=== PATIENT | female | born 1980 | race Caucasian/White ===

== ENCOUNTER → 2018-02-21 | Outpatient (CLI) | payer OTHER | LOC: FIMAGING 14:11 | PROVIDERS: ATTEND Obstetrics & Gynecology | DX: O09.522 Supervision of elderly multigravida, second trimester (principal); O30.032 Twin pregnancy, monochorionic/diamniotic, second trimester; O44.02 Complete placenta previa NOS or without hemorrhage, second trimester; Z3A.16 16 weeks gestation of pregnancy ==

== ENCOUNTER → 2018-03-07 | Outpatient (CLI) | payer OTHER | LOC: FIMAGING 11:26 | PROVIDERS: ATTEND Obstetrics & Gynecology | DX: O30.032 Twin pregnancy, monochorionic/diamniotic, second trimester (principal); Z3A.18 18 weeks gestation of pregnancy; O09.522 Supervision of elderly multigravida, second trimester ==

== ENCOUNTER → 2018-04-04 | Outpatient (CLI) | payer OTHER | LOC: FIMAGING 14:23 | PROVIDERS: ATTEND Obstetrics & Gynecology | DX: O09.512 Supervision of elderly primigravida, second trimester (principal); O30.032 Twin pregnancy, monochorionic/diamniotic, second trimester; O09.812 Supervision of pregnancy resulting from assisted reproductive technology, second trimester; Z3A.22 22 weeks gestation of pregnancy ==

== ENCOUNTER → 2018-04-18 | Outpatient (CLI) | payer OTHER | LOC: FIMAGING 08:46 | PROVIDERS: ATTEND Obstetrics & Gynecology | DX: O09.522 Supervision of elderly multigravida, second trimester (principal); O30.032 Twin pregnancy, monochorionic/diamniotic, second trimester; O09.812 Supervision of pregnancy resulting from assisted reproductive technology, second trimester; O09.292 Supervision of pregnancy with other poor reproductive or obstetric history, second trimester; Z3A.24 24 weeks gestation of pregnancy ==

== ENCOUNTER → 2018-05-06 | Outpatient (CLI) | payer OTHER | LOC: FIMAGING 08:49 | PROVIDERS: ATTEND Obstetrics & Gynecology | DX: O09.522 Supervision of elderly multigravida, second trimester (principal); O30.032 Twin pregnancy, monochorionic/diamniotic, second trimester; Z3A.26 26 weeks gestation of pregnancy ==

== ENCOUNTER → 2018-05-20 | Outpatient (CLI) | payer OTHER | LOC: FIMAGING 08:04 | PROVIDERS: ATTEND Obstetrics & Gynecology | DX: O09.523 Supervision of elderly multigravida, third trimester (principal); O30.033 Twin pregnancy, monochorionic/diamniotic, third trimester; O43.123 Velamentous insertion of umbilical cord, third trimester; Z3A.28 28 weeks gestation of pregnancy ==

== ENCOUNTER → 2018-05-30 | Outpatient (CLI) | payer OTHER | LOC: FIMAGING 10:20 | PROVIDERS: ATTEND Obstetrics & Gynecology | DX: O30.033 Twin pregnancy, monochorionic/diamniotic, third trimester (principal); Z3A.30 30 weeks gestation of pregnancy ==

== ENCOUNTER 2018-06-13 09:29 | Day surgery (SDC) | payer OTHER | END 2018-06-13 09:54 | disposition home or self-care (01) | LOC: FOBOP 09:29 | PROVIDERS: ATTEND Obstetrics & Gynecology | DX: O30.093 Twin pregnancy, unable to determine number of placenta and number of amniotic sacs, third trimester (principal); O09.523 Supervision of elderly multigravida, third trimester; Z3A.32 32 weeks gestation of pregnancy ==

== ENCOUNTER → 2018-06-13 | Outpatient (CLI) | payer OTHER | LOC: FIMAGING 10:15 | PROVIDERS: ATTEND Obstetrics & Gynecology | DX: O09.523 Supervision of elderly multigravida, third trimester (principal); O30.033 Twin pregnancy, monochorionic/diamniotic, third trimester; Z3A.32 32 weeks gestation of pregnancy ==

== ENCOUNTER → 2018-06-17 | Day surgery (SDC) | payer OTHER | END | disposition home or self-care (01) | LOC: EEVIPCON 13:28 → UNDOADMOB 13:28 → FLD 13:28 → FOBOP 13:28 → UNDODISOB 14:18 → EDSTATUS 15:39 | PROVIDERS: ATTEND Obstetrics & Gynecology | DX: O30.003 Twin pregnancy, unspecified number of placenta and unspecified number of amniotic sacs, third trimester (principal); Z3A.32 32 weeks gestation of pregnancy ==

== ENCOUNTER → 2018-06-24 | Outpatient (CLI) | payer OTHER | LOC: FOBOP 15:08 | PROVIDERS: ATTEND Obstetrics & Gynecology | DX: O30.003 Twin pregnancy, unspecified number of placenta and unspecified number of amniotic sacs, third trimester (principal); Z3A.33 33 weeks gestation of pregnancy ==

== ENCOUNTER 2018-06-27 10:42 | Outpatient (CLI) | payer OTHER | END 2018-06-27 13:05 | disposition home or self-care (01) | LOC: FOBOP 10:42 | PROVIDERS: ATTEND Obstetrics & Gynecology | DX: O09.523 Supervision of elderly multigravida, third trimester (principal); O30.033 Twin pregnancy, monochorionic/diamniotic, third trimester; Z3A.34 34 weeks gestation of pregnancy ==

== ENCOUNTER 2018-07-04 11:02 | Outpatient (CLI) | payer OTHER | END 2018-07-04 12:40 | disposition home or self-care (01) | LOC: FOBOP 11:02 | PROVIDERS: ATTEND Obstetrics & Gynecology | DX: O30.003 Twin pregnancy, unspecified number of placenta and unspecified number of amniotic sacs, third trimester (principal); Z3A.35 35 weeks gestation of pregnancy ==

== ENCOUNTER 2018-07-11 11:45 | Outpatient (CLI) | payer OTHER | END 2018-07-11 12:15 | disposition home or self-care (01) | LOC: FOBOP 11:45 | PROVIDERS: ATTEND Obstetrics & Gynecology | DX: O30.009 Twin pregnancy, unspecified number of placenta and unspecified number of amniotic sacs, unspecified trimester (principal) ==

== ENCOUNTER → 2018-07-11 | Outpatient (CLI) | payer OTHER | LOC: FIMAGING 09:26 | PROVIDERS: ATTEND Obstetrics & Gynecology | DX: O09.523 Supervision of elderly multigravida, third trimester (principal); O30.033 Twin pregnancy, monochorionic/diamniotic, third trimester; Z3A.36 36 weeks gestation of pregnancy ==

== ENCOUNTER 2018-07-15 13:02 | Outpatient (CLI) | payer OTHER ==
--- NOTE | 2018-07-15 14:37 | OBPROG ---
Labor Progress Note Assessment/Plan: Assessment: 37 y/o @ 36 4/7 weeks with mono/di twins for scheduled NST Plan: D/c home after reassuring testing. Scheduled IOL next week. 07/15/18 14:36 Subjective/Intrapartum Course: 07/15/18 14:35 Pt presents for scheduled twin NST. mono/di twins 364/7 weeks. No complaints - Contraction Pattern Assessment Current Contraction Pattern: Other (Specify) (irritability, no contractions) - FHR Assessment Twin A FHR (bpm): 130 FHR Pattern Variability: Moderate FHR Category: 1 Twin B FHR (bpm): 140 FHR Pattern Variability: Moderate FHR Category: 1 ICD10 Worksheet Patient Problems: Problems Problem Status Onset Twin gestation with third Acute Monochorionic diamniotic twin gestation Acute Monochorionic diamniotic twin gestation in third trimester Acute Monochorionic diamniotic twin gestation in third trimester Acute
== END 2018-07-15 13:40 | disposition home or self-care (01) ==
LOC: FOBOP 13:02
PROVIDERS: ATTEND Obstetrics & Gynecology
DX: O30.033 Twin pregnancy, monochorionic/diamniotic, third trimester (principal); Z3A.36 36 weeks gestation of pregnancy

== ENCOUNTER → 2018-07-18 | Outpatient (CLI) | payer OTHER | LOC: FOBOP 13:04 | PROVIDERS: ATTEND Hospitalist | DX: O30.003 Twin pregnancy, unspecified number of placenta and unspecified number of amniotic sacs, third trimester (principal); Z3A.37 37 weeks gestation of pregnancy ==

== ENCOUNTER 2018-07-22 14:15 | Observation (INO) | payer OTHER ==
--- NOTE | 2018-07-22 14:58 | SOAPPROG ---
SOAP Progress Note Assessment/Plan: Assessment: 37 yo at 36w6d with mono/di twins - reactive NST Plan:dc home, proceed with IOL tomorrow as already scheduled. Jacey Morris MD, FACOG 07/22/18 14:56 Subjective: Did not see patient - reviewed NST only Objective: NST - both A and B with 130 baseline and both reactive, moderate variability. Rare 10 sec variable decel to 100. - Pending Discharge Pending Discharge Within 24 Hours: Yes Pending Discharge Within 48 Hours: Yes Pending Discharge Date: 07/23/18 Pending Discharge Time: 11:00 ICD10 Worksheet Patient Problems: Problems Problem Status Onset Monochorionic diamniotic twin gestation Acute Monochorionic diamniotic twin gestation in third trimester Acute Monochorionic diamniotic twin gestation in third trimester Acute Twin gestation with third Acute
== END 2018-07-22 15:05 | disposition home or self-care (01) ==
LOC: FOBOP 14:15 → FLD 14:17
PROVIDERS: ADMIT Hospitalist; ATTEND Hospitalist
DX: O30.033 Twin pregnancy, monochorionic/diamniotic, third trimester (principal); Z3A.38 38 weeks gestation of pregnancy

== ENCOUNTER 2018-07-23 06:00 | Inpatient (IN) | payer OTHER ==
[2018-07-23] MEDS ORDERED: OXYTOCIN/RINGERS LACTATE 1,000 ML IV PRN (07:03)
[2018-07-23] MEDS ORDERED: TERBUTALINE SULFATE 1 MG/ML VIAL IV PRN (07:03)
[2018-07-23] MEDS ORDERED: LR 500 ML IV PRN (07:03)
[2018-07-23] MEDS ORDERED: LIDOCAINE 1% 300 MG/30 ML SDV SC PRN (07:03)
[2018-07-23] MEDS ORDERED: MISOPROSTOL 200 MCG TAB PO PRN (07:03)
[2018-07-23] MEDS ORDERED: AMMONIA AROMATIC 1 EACH AMP IH PRN (07:03)
[2018-07-23] MEDS ORDERED: OLIVE OIL 118 ML BTL MISC PRN (07:03)
[2018-07-23] MEDS ORDERED: LR 1,000 ML IV PRN (07:03)
[2018-07-23] MEDS ORDERED: OXYTOCIN/RINGERS LACTATE 500 ML IV SCH (07:03)
[2018-07-23] MEDS ORDERED: EPSOM SALT 454 GM TP PRN (07:03)
[2018-07-23] MEDS ORDERED: IBUPROFEN 600 MG TAB PO PRN (07:03)
[2018-07-23] MEDS ORDERED: OLIVE OIL 118 ML BTL ONE (07:36)
[2018-07-23] MEDS ORDERED: AMMONIA AROMATIC 1 EACH AMP IH ONE (07:36)
[2018-07-23] MEDS ORDERED: LIDOCAINE 1% 300 MG/30 ML SDV ONE (07:36)
[2018-07-23] MEDS ORDERED: MISOPROSTOL 200 MCG TAB ONE (07:36)
[2018-07-23] MEDS ORDERED: TERBUTALINE SULFATE 1 MG/ML VIAL ONE (07:36)
[2018-07-23 08:15] LABS: PLATELET COUNT 125 10^3/uL (150-400)
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
--- NOTE | 2018-07-23 11:35 | OBPROG ---
Labor Progress Note Assessment/Plan: Assessment: 37 y/o @ 37 5/7 weeks IOL secondary to mono/di twins Plan: Good progress and good contraction pattern with pitocin. Pt will get her epidural now and then I will proceed with AROM. status reassuring x 2. 07/23/18 11:34 Subjective/Intrapartum Course: 07/23/18 11:32 Pt is beginning to feel strong regular contractions. Moderate intensity. Objective: 07/23/18 07:25 Patient ABO/Rh B POSITIVE 07/23/18 07:25 - SVE Dilation (cm): 4 Effacement (%): 80 Station: -2 Membranes: Intact - Contraction Pattern Assessment Current Contraction Pattern: Regular (Q 2-3) - FHR Assessment Twin A FHR (bpm): 140 FHR Pattern Variability: Moderate FHR Category: 1 Twin B FHR (bpm): 130 FHR Pattern Variability: Moderate FHR Category: 1 - AP Antepartum Course: 07/23/18 11:33 mono/di twins marginal cord insertion x 2 Followed with Q 2 week u/s, good growth and fluids Oxytocin Orders Assessment - Pre-Induction/Augmentation Assessment Gestational Age: 37 week(s) and 5 day(s) ICD10 Worksheet Patient Problems: Problems Problem Status Onset Monochorionic diamniotic twin gestation Acute Monochorionic diamniotic twin gestation in third trimester Acute Monochorionic diamniotic twin gestation in third trimester Acute Twin gestation with third Acute
[2018-07-23] MEDS ORDERED: fentaNYL 100 MCG/2 ML INJ ONE (11:51)
--- NOTE | 2018-07-23 12:28 | PREANESOB ---
Obstetric Pre-Anesthesia Info - General Info Proposed Procedure: PCEA : 2 Para: 1 MARIA M: 08/08/18 Gestational Age: 37 week(s) and 5 day(s) - Labor Status Cervical Dilation per last OB SVE: 4 Station per last OB SVE: -2 Indications for Labor Analgesia: Pain Control Labor Epidural: Yes Anesthesia Allergies/Adverse Reactions: Allergy/AdvReac Type Severity Reaction Status Date / Time cortisone Allergy Rash Verified 06/27/18 11:55 latex Allergy Verified 06/27/18 11:55 Penicillins Allergy Verified 06/27/18 11:56 Home Medications: Medication Instructions Recorded Ferrous Sulfate 1 tab PO BID 06/13/18 Magnesium 1 tab PO BID 06/13/18 1 tab PO DAILY 06/13/18 Visit Medications: Generic Name Dose Route Start Last Admin Trade Name Freq PRN Reason Stop Dose Admin Ammonia (Aromatic Spirit) 1 each 07/23/18 07:03 Ammonia Aromatic IH 08/02/18 07:02 ONCE PRN Fainting Lactated Ringer's 1,000 mls @ 0 mls/hr 07/23/18 07:03 07/23/18 07:49 Lr IV 07/24/18 07:02 1,000 mls PRN PRN Administration SEE PROTOCOL CONDITIONS Protocol Per Protocol Oxytocin/Lactated Ringer's 1,000 mls @ 125 mls/hr 07/23/18 07:03 Pitocin 20 Units/Lr (Premix) IV PRN PRN Post bleeding Lactated Ringer's 500 mls @ 500 mls/hr 07/23/18 07:03 Lr IV PRN PRN Maternal Hypotension Oxytocin/Lactated Ringer's 500 mls @ 0 mls/hr 07/23/18 07:03 07/23/18 07:49 Pitocin 30 Units/Lr (Premix) IV 01/19/19 07:02 500 mls CONT LUZ Administration Protocol Per Protocol Fentanyl 200 mcg/ Bupivacaine 100 mls @ 0 mls/hr 07/23/18 12:30 HCl 20 ml/ Sodium Chloride EP 08/02/18 12:29 CONT LUZ Protocol As Directed Ibuprofen 600 mg 07/23/18 07:03 Motrin PO ONCE PRN post , pain Lidocaine HCl 300 mg 07/23/18 07:03 Lidocaine Hcl 1% SC 01/19/19 07:02 ONCE PRN episiotomy Magnesium Sulfate 454 gm 07/23/18 07:03 Epsom Salt TP 01/19/19 07:02 Q1H PRN perineal discomfort Misoprostol 800 - 1,000 mcg 07/23/18 07:03 Cytotec PO 01/19/19 07:02 ONCE PRN Vaginal Atony/Bleeding [place] Oil 118 ml 07/23/18 07:03 Sweet Oil MISC 01/19/19 07:02 ONCE PRN perineal massage Terbutaline Sulfate 0.25 mg 07/23/18 07:03 Brethine IV 01/19/19 07:02 ONCE PRN Tachysystole Discontinued Medications Generic Name Dose Route Start Last Admin Trade Name Freq PRN Reason Stop Dose Admin Ammonia (Aromatic Spirit) Confirm 07/23/18 07:36 Ammonia Aromatic Administered 07/23/18 07:37 Dose 1 each IH .STK-MED ONE Fentanyl Confirm 07/23/18 11:51 Sublimaze Administered 07/23/18 11:52 Dose 100 mcg .ROUTE .STK-MED ONE Lidocaine HCl Confirm 07/23/18 07:36 Lidocaine Hcl 1% Administered 07/23/18 07:37 Dose 300 mg .ROUTE .STK-MED ONE Misoprostol Confirm 07/23/18 07:36 Cytotec Administered 07/23/18 07:37 Dose 1,000 mcg .ROUTE .STK-MED ONE [place] Oil Confirm 07/23/18 07:36 Sweet Oil Administered 07/23/18 07:37 Dose 118 ml .ROUTE .STK-MED ONE Terbutaline Sulfate Confirm 07/23/18 07:36 Brethine Administered 07/23/18 07:37 Dose 1 mg .ROUTE .STK-MED ONE - Vital Signs Height/Weight (Nursing): Height 180.34 cm Weight 78.925 kg Labs: 07/23/18 07:25 Patient ABO/Rh B POSITIVE 07/23/18 07:25
[2018-07-23] MEDS ORDERED: fentaNYL 2MCG/ML/BUP 0.1% RTU 100 ML EP SCH (12:30)
[2018-07-23] MEDS ORDERED: fentaNYL 200 MCG, BUPIVACAINE 0.5% 20 ML in NS 100 ML EP SCH (12:30)
[2018-07-23] MEDS ORDERED: LR 500 ML IV SCH (12:30)
--- NOTE | 2018-07-23 12:30 | PDANEPAE ---
ANE History of Present Illness PCEA for labor - twins ANE Past Medical History - Cardiovascular History Hx Hypertension: No - Pulmonary History Hx Asthma/Reactive Airway Disease: No Hx Sleep Apnea: No - Endocrine History Hx Diabetes: No - Neurological & Psychiatric Hx Hx Neurological and Psychiatric Disorders: No - Chronic Pain History Chronic Pain: No ANE Review of Systems Review of Systems: ANE Patient History - Allergies Allergies/Adverse Reactions: cortisone Allergy (Verified 06/27/18 11:55) Rash latex Allergy (Verified 06/27/18 11:55) Penicillins Allergy (Verified 06/27/18 11:56) - Home Medications Home medications: home medication list seen and reviewed Home Medications: Ferrous Sulfate 1 tab PO BID 06/13/18 [Last Taken 07/08/18 08:00] Magnesium 1 tab PO BID 06/13/18 [Last Taken 07/08/18 13:00] 1 tab PO DAILY 06/13/18 [Last Taken 07/08/18 08:00] - Anes Hx Anes Hx: no prior problems (Epidural with first child about 2 years ago in [facility]) - Smoking Hx Smoking Status: Never smoked ANE Labs/Vital Signs - Labs Result Diagrams: 07/23/18 07:25 - Vital Signs Height: 180.34 cm Weight: 78.925 kg ANE Physical Exam - Airway Neck exam: FROM Mallampati Score: Class 1 Mouth exam: normal dental/mouth exam - Pulmonary Pulmonary: no respiratory distress - Cardiovascular Cardiovascular: regular rate and rhythym - ASA Status ASA Status: II ANE Anesthesia Plan Anesthesia Plan: epidural
[2018-07-23] MEDS ORDERED: PHENYLEPHRINE HCL 100 MCG/ML SYR ONE (12:31)
[2018-07-23] MEDS ORDERED: BUPIVACAINE 0.25% 30 ML SDV ONE (15:17)
--- NOTE | 2018-07-23 15:20 | OBPROG ---
Labor Progress Note Assessment/Plan: Assessment: 37 y/o @ 37 5/7 weeks IOL secondary to mono/di twins Plan: Consistent cervical progress, now comfortable with her epidural. AROM but min fluid, will observe fluid and increase pitocin until adequate. status reassuring x 2. 07/23/18 11:34 07/23/18 15:18 Subjective/Intrapartum Course: 07/23/18 11:32 Pt is beginning to feel strong regular contractions. Moderate intensity. 07/23/18 15:16 Pt is now comfortable with her epidural. Objective: 07/23/18 07:25 Patient ABO/Rh B POSITIVE 07/23/18 07:25 - SVE Dilation (cm): 6 Effacement (%): 80 Station: -2 Membranes: AROM, Intact Amniotic Fluid Color: Clear (min fluid) - Contraction Pattern Assessment Current Contraction Pattern: Regular (Q 2-4 ) - FHR Assessment Twin B FHR (bpm): 140 FHR Pattern Variability: Moderate FHR Category: 1 Twin A FHR (bpm): 130 FHR Pattern Variability: Moderate FHR Category: 1 - Procedures Non-surgical Procedures: Amniotomy - AP Antepartum Course: 07/23/18 11:33 mono/di twins marginal cord insertion x 2 Followed with Q 2 week u/s, good growth and fluids Oxytocin Orders Assessment - Pre-Induction/Augmentation Assessment Gestational Age: 37 week(s) and 5 day(s) ICD10 Worksheet Patient Problems: Problems Problem Status Onset Monochorionic diamniotic twin gestation Acute Monochorionic diamniotic twin gestation in third trimester Acute Monochorionic diamniotic twin gestation in third trimester Acute Twin gestation with third Acute
[2018-07-23] MEDS ORDERED: HYDROCORTISONE 0.5% CREAM TP PRN (19:17)
[2018-07-23] MEDS ORDERED: SIMETHICONE 80 MG TAB CHEW PO PRN (19:17)
[2018-07-23] MEDS ORDERED: DOCUSATE SODIUM 100 MG CAP PO PRN (19:17)
[2018-07-23] MEDS ORDERED: CALCIUM CARBONATE 500 MG CHEWABLE TAB PO PRN (19:20)
--- NOTE | 2018-07-23 19:24 | OBDEL ---
Info Type: Vaginal Presentation at Delivery: Vertex L&D Analgesia/Anesthesia Type: Epidural GBS+: No Intrapartum Medications: Generic Name Dose Route Start Last Admin Trade Name Freq PRN Reason Stop Dose Admin Lactated Ringer's 1,000 mls @ 0 mls/hr 07/23/18 07:03 07/23/18 07:49 Lr IV 07/24/18 07:02 1,000 mls PRN PRN Administration SEE PROTOCOL CONDITIONS Protocol Per Protocol Oxytocin/Lactated Ringer's 500 mls @ 0 mls/hr 07/23/18 07:03 07/23/18 07:49 Pitocin 30 Units/Lr (Premix) IV 01/19/19 07:02 500 mls CONT LUZ Administration Protocol Per Protocol - Hospital Course Intrapartum: 07/23/18 11:32 Pt is beginning to feel strong regular contractions. Moderate intensity. 07/23/18 15:16 Pt is now comfortable with her epidural. Indications for Delivery: Multiple Gestation Mo-Di Twins Vaginal Delivery - Delivery Provider Delivery Physician/CNM: Jeannette Cortez Proctoring Provider: Viridiana Kraus (assisting 2nd MD) - Labor and Delivery Onset of Contractions Date: 07/23/18 Onset of Contractions Time: 15:10 Onset of Contractions Type: Induced Rupture of Membranes Date: 07/23/18 Rupture of Membranes Time: 15:10 Rupture of Membranes Type: Artificial Amniotic Fluid Color: Clear (min fluid) Dilation Complete Date: 07/23/18 Dilation Complete Time: 17:32 Placenta Delivery Date: 07/23/18 Placenta Delivery Time: 18:50 Total Hours of Labor: 3 Non-surgical Procedures: Amniotomy Laceration: 2nd Degree Repair: 2-0, Vicryl Vaginal Sponge Count Correct: Yes Vaginal Needle Count Correct: Yes Vaginal Sweep Performed: Yes EBL: 400 Delivery Events: Nuchal Cord (nuchal cord x1 baby A) - Medications Labor Augmentation/Induction Methods Used: Pitocin Labor Augmentation/Induction Indication: Other (Specify) (mono/di twins 37 weeks ) Data MARIA M: 08/08/18 Gestational Age: 37 week(s) and 5 day(s) Twin A Delivery Date: 07/23/18 Delivery Time: 18:39 Sex of Infant: Male Florien Weight (gm): 2550 g Score (1 Min): 9 Score (5 Min): 10 Twin B Delivery Date: 07/23/18 Delivery Time: 18:44 Sex of Infant: Male Florien Weight (gm): 2554 g Score (1 Min): 8 Score (5 Min): 9 ICD10 Worksheet Patient Problems: Problems Problem Status Onset (spontaneous vaginal delivery) Acute Twin Acute Monochorionic diamniotic twin gestation Acute Monochorionic diamniotic twin gestation in third trimester Acute Monochorionic diamniotic twin gestation in third trimester Acute Twin gestation with third Acute - ICD10 Problem Qualifiers (1) Twin (2) (spontaneous vaginal delivery)
[2018-07-24] MEDS: ACETAMINOPHEN 325 MG TAB PO SCH ×4 (00:51→16:59)
[2018-07-24] MEDS: IBUPROFEN 600 MG TAB PO SCH ×3 (02:10→16:58)
--- NOTE | 2018-07-24 09:42 | OBPP ---
Progress Note Assessment/Plan: Assessment: s/p [place]-Di twins PPD # 1 - pt is stable Plan: Continue routine pp care Encourage ambulation Will add Oxy for painful cramps and sore bottom Plan for d/c home in am /07/24/18 09:39 Subjective/ Course: 07/24/18 09:40 Pt seen and examined. Doing well, just passed a large clot and had a lot of cramping. Minimal relief with Motrin/Tylenol. Pt is OOB, miguel nagel regular diet, voiding and passing flatus. No BM yet. She is pumping; working with . Objective: 07/24/18 05:24 Patient ABO/Rh B POSITIVE 07/23/18 07:25 Temp Pulse Resp BP Pulse Ox 36.6 C 58 L 17 97/56 L 95 07/24/18 08:00 07/24/18 08:00 07/24/18 08:00 07/24/18 08:00 07/24/18 08:00 Uterine Position/Fundal Height: Umbilicus -1 Uterine Tone: Firm Physical Exam - Physical Exam General Appearance: WD/WN, alert, no apparent distress Respiratory: lungs clear, normal breath sounds Cardiac/Chest: regular rate, rhythm Abdomen: normal bowel sounds, non-tender, soft, flatus (+) Extremities: non-tender, normal inspection Skin: normal color, warm/dry Neuro/Psych: alert, normal mood/affect, oriented x 3
[2018-07-24] MEDS: oxyCODONE IR 5 MG TAB PO PRN ×2 (10:20→20:29)
--- NOTE | 2018-07-24 11:34 | POSTANESTH ---
Post Anesthetic Evaluation Cardiovascular Status: Normal, Stable Respiratory Status: Normal, Stable Level of Consciousness/Mental Status: Can Participate in Eval Pain Control: Adequate, Prn Tx Ordered Nausea/Vomiting Control: Adequate, Prn Tx Ordered Complications Possibly Related to Anesthesia: None Noted
[2018-07-25] MEDS: ACETAMINOPHEN 325 MG TAB PO SCH ×4 (00:05→14:28)
[2018-07-25] MEDS: IBUPROFEN 600 MG TAB PO SCH ×4 (00:06→14:28)
[2018-07-25 12:41] VITALS: BP 109/72
--- NOTE | 2018-07-25 13:36 | OBPP ---
Progress Note Assessment/Plan: Assessment: PPD 2 s/p twins mild anemia Plan: D/C to boarder status. 07/25/18 13:33 Subjective/ Course: 07/24/18 09:40 Pt seen and examined. Doing well, just passed a large clot and had a lot of cramping. Minimal relief with Motrin/Tylenol. Pt is OOB, miguel angel regular diet, voiding and passing flatus. No BM yet. She is pumping; working with . 07/25/18 13:34 Pt doing well. Good success with BF. moderate cramps and has used occas oxy. using ibu/tyl. Light bleeding. urinating fine. Objective: 07/24/18 05:24 Patient ABO/Rh B POSITIVE 07/23/18 07:25 Temp Pulse Resp BP Pulse Ox 36.1 C 72 16 109/72 94 07/25/18 08:00 07/25/18 08:00 07/25/18 08:00 07/25/18 08:00 07/24/18 20:01 Uterine Position/Fundal Height: Umbilicus -2 Uterine Tone: Firm Physical Exam - Physical Exam Abdomen: non-tender, soft, other (normal lochia) Extremities: non-tender, pedal edema (minimal) Skin: normal color, warm/dry Neuro/Psych: alert, normal mood/affect
--- NOTE | 2018-07-25 13:37 | OBGCSDC ---
General Delivery Information - General Info : 2 Para: 2 Abortions: 0 Type: Vaginal L&D Analgesia/Anesthesia Type: Epidural Admission Date: 07/23/18 Labs: Patient ABO/Rh B POSITIVE 07/23/18 07:25 Hct 35.2 % (38.0-47.0) L 07/24/18 05:24 - Hospital Course Antepartum: 07/23/18 11:33 mono/di twins marginal cord insertion x 2 Followed with Q 2 week u/s, good growth and fluids Intrapartum: 07/23/18 11:32 Pt is beginning to feel strong regular contractions. Moderate intensity. 07/23/18 15:16 Pt is now comfortable with her epidural. : 07/24/18 09:40 Pt seen and examined. Doing well, just passed a large clot and had a lot of cramping. Minimal relief with Motrin/Tylenol. Pt is OOB, miguel angel regular diet, voiding and passing flatus. No BM yet. She is pumping; working with . 07/25/18 13:34 Pt doing well. Good success with BF. moderate cramps and has used occas oxy. using ibu/tyl. Light bleeding. urinating fine. Vaginal - Delivery Provider Delivery Physician/CNM: Jeannette Cortez - Diagnosis Labor: Induced Rupture of Membranes Type: Artificial Amniotic Fluid Color: Clear (min fluid) Laceration: 2nd Degree Repair: 2-0, Vicryl Delivery Events: Nuchal Cord (nuchal cord x1 baby A) - Procedures Non-surgical Procedures: Amniotomy - Delivery Non-surgical Procedures: Amniotomy EBL: 400 Catarina Data MARIA M: 08/08/18 Gestational Age: 38 week(s) and 0 day(s) Twin A Delivery Date: 07/23/18 Delivery Time: 18:39 Sex of : Male Weight (gm): 2550 g Score (1 Min): 9 Score (5 Min): 10 Twin B Delivery Date: 07/23/18 Delivery Time: 18:44 Sex of : Male Weight (gm): 2554 g Score (1 Min): 8 Score (5 Min): 9 Discharge Information - Discharge Information Condition: Good Instruction/Follow Up: See Instruction Sheet, Two Weeks (2-4 wks with therapist) , Six Weeks (with Diego)
== END 2018-07-25 20:00 | disposition home or self-care (01) | DRG 807 ==
LOC: FLD 06:39 → FOB 22:05
PROVIDERS: ADMIT Hospitalist; ATTEND Hospitalist
DX: O30.033 Twin pregnancy, monochorionic/diamniotic, third trimester (principal); Z37.2 Twins, both liveborn; Z3A.38 38 weeks gestation of pregnancy; O69.82X1 Labor and delivery complicated by other cord entanglement, without compression, fetus 1; O70.1 Second degree perineal laceration during delivery
CPT/HCPCS: J2370; J2590; J3010; J3105